=== PATIENT | male | born 1985 | race Two or more races ===

== ENCOUNTER → 2020-07-09 | Outpatient (CLI) | payer OTHER | END | disposition home or self-care (01) | LOC: OFIC 805 12:50 | PROVIDERS: ATTEND Otolaryngology Otology & Neurotology | DX: H60.8X2 Other otitis externa, left ear (principal); H61.22 Impacted cerumen, left ear ==

== ENCOUNTER → 2020-07-16 | Outpatient (CLI) | payer OTHER | END | disposition home or self-care (01) | LOC: OFIC 805 14:15 | PROVIDERS: ATTEND Otolaryngology Otology & Neurotology | DX: H60.8X2 Other otitis externa, left ear (principal); H61.22 Impacted cerumen, left ear ==

== ENCOUNTER 2020-08-31 14:16 | Outpatient (CLI) | payer OTHER | END 2020-08-31 14:50 | disposition home or self-care (01) | LOC: OFIC 805 14:16 | PROVIDERS: ATTEND Otolaryngology Otology & Neurotology | DX: H60.8X2 Other otitis externa, left ear (principal); H61.23 Impacted cerumen, bilateral ==